=== PATIENT | female | born 1950 | race Caucasian/White ===

== ENCOUNTER 2019-09-22 17:20 | Inpatient (IN) | payer MEDICARE, OTHER ==
[2019-09-22] MEDS ORDERED: NORMAL SALINE 1000 ML 1,000 ML IV ONE (18:06)
[2019-09-22 18:07] LABS: HEMATOCRIT 41.9 % (36.0-47.0); HEMOGLOBIN 14.5 g/dL (12.0-15.5); MEAN CORPUSCULAR HEMOGLOBIN 29.8 pg (27.0-33.4); MEAN CORPUSCULAR HGB CONC 34.6 g/dL (32.0-36.0); MEAN CORPUSCULAR VOLUME 86 fl (80-97); PLATELET COUNT 181 10^3/uL (150-450); RED BLOOD COUNT 4.88 10^6/uL (3.72-5.28); RED CELL DISTRIBUTION WIDTH 12.9 % (11.5-14.0); WHITE BLOOD COUNT 16.4 10^3/uL (4.0-10.5)
--- NOTE | 2019-09-22 18:38 | RADIOLOGY REPORT (SQ) ---
EXAM DESCRIPTION: CHEST SINGLE VIEW IMAGES COMPLETED DATE/TIME: 09/22/2019 6:21 pm REASON FOR STUDY: [employer] COMPARISON: None. EXAM PARAMETERS: NUMBER OF VIEWS: One view. TECHNIQUE: Single frontal radiographic view of the chest acquired. RADIATION DOSE: NA LIMITATIONS: None. FINDINGS: LUNGS AND PLEURA: No opacities, masses or pneumothorax. No pleural effusion. MEDIASTINUM AND HILAR STRUCTURES: No masses. Contour normal. HEART AND VASCULAR STRUCTURES: Heart size is borderline. No pulmonary edema. BONES: No acute findings. HARDWARE: None in the chest. OTHER: No other significant finding. IMPRESSION: Borderline heart size without pulmonary edema. TECHNICAL DOCUMENTATION: JOB ID: [id number] 2010 [employer]- All Rights Reserved Reading location - IP/workstation name: [email or web address]
[2019-09-22 18:45] LABS: ABSOLUTE LYMPHOCYTES# (MANUAL) 0.7 10^3/uL (0.5-4.7); BASOPHILS % (MANUAL) 0 % (0-2); EOSINOPHILS % (MANUAL) 0 % (0-6); LYMPHOCYTES % (MANUAL) 3 % (13-45); MONOCYTES % (MANUAL) 6 % (3-13); PLATELET COMMENT ADEQUATE; SEGMENTED NEUTROPHILS % (MAN) 90 % (42-78); TOTAL CELLS COUNTED 100
[2019-09-22 18:46] LABS: ALBUMIN 4.2 g/dL (3.5-5.0); ALKALINE PHOSPHATASE 72 U/L (38-126); ANION GAP 7 (5-19); ASPARTATE AMINO TRANSFERASE 18 U/L (14-36); BILIRUBIN,TOTAL 0.6 mg/dL (0.2-1.3); BLOOD UREA NITROGEN 16 mg/dL (7-20); CALCIUM 9.1 mg/dL (8.4-10.2); CARBON DIOXIDE 25 mmol/L (22-30); CHLORIDE 106 mmol/L (98-107); GLUCOSE 142 mg/dL (75-110); POTASSIUM 3.6 mmol/L (3.6-5.0); TOTAL PROTEIN 7.2 g/dL (6.3-8.2)
[2019-09-22 18:48] LABS: OVALOCYTES SLIGHT
[2019-09-22 19:57] LABS: APPEARANCE,URINE SLIGHTLY-CLOUDY; BILIRUBIN,URINE NEGATIVE (NEGATIVE); COLOR,URINE STRAW; GLUCOSE, URINE NEGATIVE (NEGATIVE); KETONES,URINE NEGATIVE (NEGATIVE); PROTEIN,URINE NEGATIVE (NEGATIVE); URINE SPECIFIC GRAVITY 1.004; UROBILINOGEN,URINE NEGATIVE mg/dL (<2.0)
--- NOTE | 2019-09-22 21:20 | EKG REPORT ---
SEVERITY:- BORDERLINE ECG - SINUS RHYTHM LEFT AXIS DEVIATION BORDERLINE T WAVE ABNORMALITIES : Confirmed by: Filiberto Cerna MD 22-Sep-2019 21:19:23
--- NOTE | 2019-09-22 22:22 | RADIOLOGY REPORT (SQ) ---
EXAM DESCRIPTION: CT ABDOMEN PELVIS WITH IV CONTRAST COMPLETED DATE/TME: 09/22/2019 18:05 CLINICAL HISTORY: 69 years, Female, rectal bleeding with LLQ pain EXAM DESCRIPTION: CLINICAL HISTORY: rectal bleeding with LLQ pain COMPARISON: None Available TECHNIQUE: Contiguous axial images of the abdomen and pelvis were obtained after the administration of intravenous contrast followed by reconstruction images.This exam was performed according to our departmental dose-optimization program, which includes automated exposure control, adjustment of the mA and/or kV according to patient size and/or use of iterative reconstruction technique. FINDINGS: There is colonic diverticulosis. The wall of the colon from the splenic flexure to the sigmoid is moderately thickened and there is surrounding soft tissue stranding. Mild thickening of the colonic wall is also seen at the ascending and transverse portions. Findings are most consistent with inflammation but ischemia or neoplasm are not excluded. There is a small hiatal hernia. Heart is mildly enlarged. The liver, spleen, pancreas and kidneys are within normal limits. There is no hydronephrosis. The gallbladder is unremarkable. Adrenal glands are within normal limits. Aorta is normal in caliber and tapering. No significant free fluid. No free air. No bowel obstruction. IMPRESSION: Findings are most consistent with inflammation of the colon. Neoplasm or ischemia are less likely. See additional findings above.
[2019-09-22] MEDS ORDERED: PIPERACILLIN/TAZOBACTAM 3.375 GM VIAL IV ONE (23:36)
[2019-09-22] MEDS ORDERED: PROMETHAZINE HCL INJ 25 MG/1 ML VIAL IV PRN (23:42)
[2019-09-22] MEDS ORDERED: MAG HYDROX/AL HYDROX/SIMETH SUSP 30 ML UDCUP PO PRN (23:42)
[2019-09-22] MEDS ORDERED: FAMOTIDINE 20 MG TABLET PO SCH (23:45)
--- NOTE | 2019-09-22 23:45 | ER Document Report ---
ED GI Bleed / Rectal Pain - General Chief Complaint: Rectal Bleeding Stated Complaint: BLOODY STOOLS/VOMITING Time Seen by Provider: 09/22/19 17:51 Primary Care Provider: CONOR MIRANDA MD [Primary Care Provider] - Follow up as needed Information source: Patient, Emergency Med Personnel Notes: Patient is a 69-year-old female who was brought in by EMS with a complaint of a rectal bleed. Patient states that earlier in the day today she had a fullness in her abdomen and felt like she had to have a bowel movement. Patient states that she went into the bathroom and she did not have any stool but she had watery diarrhea. It was not a very large amount at that time and patient still concerned did not feel necessary to come to the hospital. Later in this evening patient had another feeling as such and went to the restroom and at this time she had a volume is outflow of watery diarrhea. This bloody diarrhea was very red in its appearance. Patient decided it was time for her to come to the hospital. Patient denies any past medical history. She currently takes no medications. She denies any nausea vomiting or fevers. Patient does state that she had a colonoscopy performed approximately a year ago here at the hospital and states it was negative for any acute findings with the exception of 4 polyps. TRAVEL OUTSIDE OF THE [place] IN LAST 30 DAYS: No - HPI Patient complains to provider of: Bright red bld from rect. Onset: This evening Timing/Duration: Sudden Quality of pain: No pain Severity of symptoms: Moderate Pain Level: 3 Diarrhea X: 2 Last bowel movement: Prior to arriva Rectal bleeding: Bloody diarrhea Rectal foreign body: No Rectal pain with intercourse: No Use of: denies: Warfarin, Plavix, ASA, Lovenox, Pradaxa, NSAIDS, ETOH Associated symptoms: Abdominal pain Exacerbated by: Denies Relieved by: Denies Similar symptoms previously: No Recently seen / treated by doctor: No - Related Data Allergies/Adverse Reactions: Sulfa (Sulfonamide Antibiotics) Allergy (Verified 09/22/19 18:02) Past Medical History - General Information source: Patient, Emergency Med Personnel - Social History Smoking Status: Current Every Day Smoker Chew tobacco use (# tins/day): No Frequency of alcohol use: Occasional Drug Abuse: None Lives with: Family Family History: Reviewed & Not Pertinent Patient has homicidal ideation: No - Past Medical History Cardiac Medical History: Denies: Hx Coronary Artery Disease, Hx Heart Attack, Hx Hypertension Pulmonary Medical History: Denies: Hx Asthma, Hx Bronchitis, Hx COPD, Hx Pneumonia Neurological Medical History: Denies: Hx Cerebrovascular Accident, Hx Seizures GI Medical History: Reports: Hx Gastroesophageal Reflux Disease Musculoskeletal Medical History: Denies Hx Arthritis Past Surgical History: Reports: Hx Hysterectomy - Immunizations Hx Diphtheria, Pertussis, Tetanus Vaccination: Yes Review of Systems - Review of Systems Constitutional: No symptoms reported EENT: No symptoms reported Cardiovascular: No symptoms reported Respiratory: No symptoms reported Gastrointestinal: Diarrhea, Rectal bleeding Genitourinary: No symptoms reported Female Genitourinary: No symptoms reported Musculoskeletal: No symptoms reported Skin: No symptoms reported Hematologic/Lymphatic: No symptoms reported Neurological/Psychological: No symptoms reported -: Yes All other systems reviewed and negative Physical Exam - Vital signs Vitals: Resp BP Pulse Ox 8 L 141/90 H 97 09/22/19 17:32 09/22/19 17:32 09/22/19 17:32 Interpretation: Hypertensive - Notes Notes: PHYSICAL EXAMINATION: GENERAL: Patient is a well-nourished well-developed 69-year-old female who is in no apparent distress on examination this evening. She does appear somewhat concerned and slightly scared because of the rectal bleeding. HEAD: Atraumatic, normocephalic. EYES: Pupils equal round and reactive to light, extraocular movements intact, conjunctiva are normal. ENT: Nares patent, oropharynx clear without exudates. Moist mucous membranes. NECK: Normal range of motion, supple without lymphadenopathy LUNGS: Breath sounds clear to auscultation bilaterally and equal. No wheezes rales or rhonchi. HEART: Regular rate and rhythm without murmurs ABDOMEN: Examination patient's abdomen shows she has bowel sounds present in all 4 quads. She has some mild tenderness noted in the left lower quadrant area to palpation. No flank tenderness to percussion noted. No suprapubic tenderness noted. Female : deferred Musculoskeletal: Normal range of motion, no pitting or edema. No cyanosis. NEUROLOGICAL: Normal speech, Normal sensory, motor exams PSYCH: Normal mood, flat affect noted SKIN: Warm, Dry, normal turgor, no rashes or lesions noted. Course - Re-evaluation Re-evalutation: 09/22/19 23:45 Patient stated emergency room is been fairly quiet however her labs came back with a 16 for white count her hemoglobin hematocrit were normal on initial examination of 14.[address] showed possibility of stranding and thickening of the wen of the colon. I discussed the case with my attending Dr. Lee and he has suggested that we contact the surgicalist Dr. Jamison to inform him of our plan of admission to the hospitalist for a rectal bleed and most likely consult by the hospitalist for him. He is in agreement to be consulted by the hospitalist if they feel necessary to need them. I then co ntacted the hospitalist who is agreed also to admit the patient for a diverticulitis type presentation. He has requested that I give patient 3.75 mg of Zosyn here in the emergency room. I have also informed him the patient's vital signs are remaining normal at this time she is not tachycardic she is not hypotensive she is not de-satting. - Vital Signs Vital signs: Temp Pulse Resp BP Pulse Ox 99.4 F 18 149/71 H 93 09/22/19 17:35 09/22/19 20:01 09/22/19 20:01 09/22/19 17:33 - Laboratory Result Diagrams: 09/22/19 17:43 09/22/19 17:43 Laboratory results interpreted by me: 09/22/19 09/22/19 09/22/19 17:43 17:43 19:22 WBC 16.4 H Seg Neuts % (Manual) 90 H Lymphocytes % (Manual) 3 L Abs Neuts (Manual) 14.8 H Glucose 142 H Urine Blood MODERATE H Leukocyte Esterase Rfl SMALL H Discharge - Discharge Clinical Impression: Diverticulitis, Rectal bleed Condition: Stable Disposition: ADMITTED INPATIENT Admitting Provider: Oc (Hospitalist) Unit Admitted: Medical Floor Referrals: CONOR MIRANDA MD [Primary Care Provider] - Follow up as needed
[2019-09-22] MEDS ORDERED: MORPHINE SULFATE 10 MG/ML INJ IV PRN (23:48)
[2019-09-22] MEDS ORDERED: MELATONIN 5 MG TABLET PO PRN (23:48)
[2019-09-22] MEDS ORDERED: HYDRALAZINE HCL INJ/PF 20 MG/1 ML SDV IV PRN (23:48)
[2019-09-22] MEDS ORDERED: LORAZEPAM INJ 2 MG/1 ML VIAL IV PRN (23:48)
[2019-09-23] MEDS ORDERED: NICOTINE 21 MG/24 HR PATCH.TD24 TD PRN (00:13)
[2019-09-23] MEDS ORDERED: MORPHINE SULFATE 10 MG/ML INJ IV PRN ×4 (00:28→01:00)
[2019-09-23] MEDS ORDERED: PIPERACILLIN/TAZOBACTAM 3.375 GM VIAL IV PRN (00:30)
[2019-09-23] MEDS ORDERED: FAMOTIDINE 20 MG TABLET PO ONE (00:30)
--- NOTE | 2019-09-23 01:34 | PDOC CONSULTATION ---
Consultation Consult Date: 09/23/19 Attending physician:: SAUL PATHAK Provider Consulted: PEG DARBY Consult reason:: BLOODY DIARRHEA, ABD PAIN History of Present Illness Admission Date/PCP: 09/23/19 00:00 CONOR MIRANDA MD History of Present Illness: JAIME RUBIN is a 69 year old female who was brought in by EMS with a complaint of a rectal bleed. Patient states that earlier in the day today she had a fullness in her abdomen and felt like she had to have a bowel movement. Patient states that she went into the bathroom and she did not have any stool but she had watery diarrhea. It was not a very large amount at that time and patient still concerned did not feel necessary to come to the hospital. Later in this evening patient had another feeling as such and went to the restroom and at this time she had a volume is outflow of watery diarrhea. This bloody diarrhea was very red in its appearance. Patient decided it was time for her to come to the hospital. Patient denies any past medical history. She currently takes no medications. She denies any nausea vomiting or fevers. Patient does state that she had a colonoscopy performed approximately a year ago here at the hospital and states it was negative for any acute findings with the exception of 4 polyps She denies any recent travel contact with anybody from out of state or foreign country. She denies any unusual foods over the last week or so however she did make her self at home some frozen tilapia about 3 to 4 days ago Past Medical History Cardiac Medical History: Denies: Coronary Artery Disease, Myocardial Infarction, Hypertension Pulmonary Medical History: Denies: Asthma, Bronchitis, Chronic Obstructive Pulmonary Disease (COPD), Pneumonia EENT Medical History: Denies: Cataracts, Ears - Hearing aids Neurological Medical History: Denies: Hemorrhagic CVA, Ischemic CVA, Seizures Endocrine Medical History: Denies: Diabetes Mellitus Type 1, Diabetes Mellitus Type 2, Hyperthyroidism, Hypothyroidism Renal/ Medical History: Denies: Chronic Kidney Disease, Nephrolithiasis Malignancy Medical History: Reports: None GI Medical History: Reports: Gastroesophageal Reflux Disease, Other - Colon polyps Denies: Cirrhosis, Crohn's Disease, Hepatitis, Peptic Ulcer Disease, Ulcerative Colitis Musculoskeltal Medical History: Denies: Arthritis, Gout Skin Medical History: Denies: Eczema, Psoriasis Psychiatric Medical History: Reports: Tobacco Dependency Denies: Alcohol Dependency, Substance Abuse Traumatic Medical History: Reports: None Hematology: Reports: Anemia Denies: Bleeding Tendencies Infectious Medical History: Reports: None Past Surgical History Past Surgical History: Reports: Hysterectomy, Other - Colonoscopy with biopsies 2018 Social History Lives with: Spouse/Significant other Smoking Status: Current Every Day Smoker Electronic Cigarette use?: No Frequency of Alcohol Use: None Hx Recreational Drug Use: No Drugs: None Hx Prescription Drug Abuse: No - Advance Directive Resuscitation Status: Full Code Family History Family History: DM. denies: CAD, Hypertension, Malignancy Parental Family History Reviewed: No Children Family History Reviewed: NA Sibling(s) Family History Reviewed.: NA Medication/Allergy Home Medications: No Home Medications 08/18/18 Allergies/Adverse Reactions: Sulfa (Sulfonamide Antibiotics) Allergy (Verified 09/22/19 18:02) Review of Systems Constitutional: PRESENT: chills, fatigue, weakness Eyes: ABSENT: as per HPI, visual disturbances, other Ears: ABSENT: as per HPI, hearing changes, other Nose, Mouth, and Throat: ABSENT: as per HPI, headache(s), mouth pain, sore throat, vertigo, other Breasts: ABSENT: as per HPI, other Cardiovascular: ABSENT: as per HPI, chest pain, dyspnea on exertion, edema, orthropnea, palpitations, other Respiratory: ABSENT: as per HPI, cough, dyspnea, hemoptysis, sputum, other Gastrointestinal: PRESENT: as per HPI, abdominal pain, bloating, hematochezia Genitourinary: ABSENT: as per HPI, difficulty urinating, dysuria, hematuria, nocturia, other Musculoskeletal: ABSENT: as per HPI, back pain, deformity, joint swelling, muscle weakness, other Integumentary: ABSENT: as per HPI, diaphoresis, erythema, lesions, pruritus, rash, wounds, other Neurological: ABSENT: as per HPI, abnormal gait, abnormal movements, abnormal speech, confusion, convulsions, dizziness, focal weakness, frequent falls, lack of coordination, memory loss, numbness, paresthesias, restless legs, syncope, tingling, tremor(s), vertigo, weakness, other Psychiatric: ABSENT: as per HPI, anxiety, depression, hallucinations, homidical ideation, suicidal ideation, other Endocrine: ABSENT: as per HPI, cold intolerance, flushing, heat intolerance, menstrual abnormalities, polydipsia, polyphagia, polyuria, other Hematologic/Lymphatic: ABSENT: as per HPI, easy bleeding, easy bruising, lym phadenopathy, other Allergic/Immunologic: ABSENT: as per HPI, seasonal rhinorrhea, other Physical Exam Vital Signs: Temp Pulse Resp BP Pulse Ox 98.3 F 21 H 158/86 H 95 09/23/19 00:47 09/22/19 23:00 09/23/19 00:45 09/23/19 00:45 Intake & Output 09/21/19 09/22/19 09/23/19 06:59 06:59 06:59 Intake Total 1000 Balance 1000 Weight 77.111 kg General appearance: PRESENT: mild distress Head exam: PRESENT: normocephalic Eye exam: PRESENT: EOMI Mouth exam: PRESENT: moist Neck exam: PRESENT: full ROM Respiratory exam: PRESENT: clear to auscultation rosa Cardiovascular exam: PRESENT: RRR Pulses: PRESENT: normal radial pulses, normal femoral pulses Vascular exam: PRESENT: normal capillary refill Breast: PRESENT: Normal GI/Abdominal exam: PRESENT: tenderness - LEFT ABDOMEN AND EPIGASTRIUM Rectal exam: PRESENT: deferred Extremities exam: PRESENT: full ROM Musculoskeletal exam: PRESENT: full ROM Neurological exam: PRESENT: alert, altered, awake, oriented to person Psychiatric exam: PRESENT: anxious Skin exam: PRESENT: dry Results Laboratory Results: 09/22/19 17:43 09/22/19 17:43 09/22/19 09/22/19 09/22/19 17:43 17:43 17:57 WBC 16.4 H RBC 4.88 Hgb 14.5 Hct 41.9 MCV 86 MCH 29.8 MCHC 34.6 RDW 12.9 Plt Count 181 Seg Neutrophils % Not Reportable Sodium 137.6 Potassium 3.6 Chloride 106 Carbon Dioxide 25 Anion Gap 7 BUN 16 Creatinine 0.74 Est GFR ( Amer) > 60 Glucose 142 H Calcium 9.1 Total Bilirubin 0.6 AST 18 Alkaline Phosphatase 72 Total Protein 7.2 Albumin 4.2 Urine Color Urine Appearance Urine pH Ur Specific Thermal Urine Protein Urine Glucose (UA) Urine Ketones Urine Blood Urine RBC (Auto) Blood Type O POSITIVE Antibody Screen NEGATIVE 09/22/19 19:22 WBC RBC Hgb Hct MCV MCH MCHC RDW Plt Count Seg Neutrophils % Sodium Potassium Chloride Carbon Dioxide Anion Gap BUN Creatinine Est GFR ( Amer) Glucose Calcium Total Bilirubin AST Alkaline Phosphatase Total Protein Albumin Urine Color STRAW Urine Appearance SLIGHTLY-CLOUDY Urine pH 7.0 Ur Specific Thermal 1.004 Urine Protein NEGATIVE Urine Glucose (UA) NEGATIVE Urine Ketones NEGATIVE Urine Blood MODERATE H Urine RBC (Auto) 2 Blood Type Antibody Screen Impressions: Abdomen/Pelvis CT 09/22/19 18:05 IMPRESSION: Findings are most consistent with inflammation of the colon. Neoplasm or ischemia are less likely. See additional findings above. Chest X-Ray 09/22/19 18:07 IMPRESSION: Borderline heart size without pulmonary edema. Status: Imported from PACS - CT REVIEWED BY ME AND RADIOLOGIST RESULTS NOTED COLON APPEARS THICKENED FROM SPLENIC FLEXURE TO SIGMOID SURROUND INFLAMMATION. Assessment & Plan - Plan Summary Plan Summary: LEFT COLONIC THICKENING, INFLAMMATION BLOODY DIARRHEA R/O INFECTIOUS ETIOL, DOUBT ISCHEMIA DOUBT BLEEING DIVERTIULOSIS RECOMMEND ADMIT FOR IV HYDRATION +/- ANTIBIOTICS OBSERVATION STOOL FOR O/P AND STOOL CULTS.
[2019-09-23] MEDS: DEXTROSE 5%-LACTATED RINGERS 1,000 ML IV PRN ×3 (02:18→15:26)
--- NOTE | 2019-09-23 02:45 | PDOC H&P ---
History of Present Illness Admission Date/PCP: 09/22/2019 23:52 CONOR MIRANDA MD Patient complains of: Hematochezia History of Present Illness: JAIME RUBIN is a 69 year old female who presents the emergency room via EMS with acute hematochezia. She admits sudden obstipation beginning at 1:30 AM on 09/22/2019 resulting in watery diarrhea tinged with blood. She then repeatedly developed the same sequence of symptoms at least 12 times over the course of the day with a much increased amount of bright red blood in the last stool at home a short time before calling for the ambulance to bring her to the hospital. She admits accompanying nausea, vomiting and abdominal cramping, as well as associated acute fatigue with weakness. She denies prior similar episodes. She has not identified any aggravating or ameliorating factors for her hematochezia. In the emergency room she was found to have an elevated white blood count at 16,400 with a hemoglobin of 14.5 and hematocrit of 41.9. CT of the abdomen and pelvis revealed several segments of the colon with thickening of the colonic wall consistent with infection, ischemia or inflammatory disease. She was subsequently admitted to the hospital for further evaluation and treatment after being given Zosyn 3.375 g IV x1 in the ER. Past Medical History Cardiac Medical History: Denies: Coronary Artery Disease, Myocardial Infarction, Hypertension Pulmonary Medical History: Denies: Asthma, Bronchitis, Chronic Obstructive Pulmonary Disease (COPD), Pneumonia EENT Medical History: Denies: Cataracts, Ears - Hearing aids Neurological Medical History: Denies: Hemorrhagic CVA, Ischemic CVA, Seizures Endocrine Medical History: Denies: Diabetes Mellitus Type 1, Diabetes Mellitus Type 2, Hyperthyroidism, Hypothyroidism Renal/ Medical History: Denies: Chronic Kidney Disease, Nephrolithiasis Malignancy Medical History: Reports: None GI Medical History: Reports: Gastroesophageal Reflux Disease, Other - Colon polyps, diverticulosis Denies: Cirrhosis, Crohn's Disease, Hepatitis, Peptic Ulcer Disease, Ulcerat baldemar Colitis Musculoskeltal Medical History: Denies: Arthritis, Gout Skin Medical History: Denies: Eczema, Psoriasis Psychiatric Medical History: Reports: Tobacco Dependency Denies: Alcohol Dependency, Substance Abuse Traumatic Medical History: Reports: None Hematology: Reports: Anemia Denies: Bleeding Tendencies Infectious Medical History: Reports: None Past Surgical History Past Surgical History: Reports: Hysterectomy, Other - Colonoscopy with biopsies 2019 Social History Information Source: Patient Lives with: Spouse/Significant other Smoking Status: Current Every Day Smoker Cigarettes Packs Per Day: 2 Electronic Cigarette use?: No Frequency of Alcohol Use: None Hx Recreational Drug Use: No Drugs: None Hx Prescription Drug Abuse: No - Advance Directive Resuscitation Status: Full Code Surrogate healthcare decision maker:: Raúl Rubin Family History Family History: DM. denies: CAD, Hypertension, Malignancy Parental Family History Reviewed: Yes Children Family History Reviewed: No Sibling(s) Family History Reviewed.: Yes Medication/Allergy Home Medications: No Home Medications 08/18/18 Allergies/Adverse Reactions: Sulfa (Sulfonamide Antibiotics) Allergy (Verified 09/22/19 18:02) Review of Systems Constitutional: PRESENT: as per HPI, fatigue, weakness. ABSENT: chills, fever(s) Eyes: ABSENT: visual disturbances, other - Eye pain Ears: ABSENT: hearing changes, other - Ear pain Nose, Mouth, and Throat: ABSENT: headache(s), sore throat Cardiovascular: ABSENT: chest pain, palpitations Respiratory: ABSENT: cough, dyspnea Gastrointestinal: PRESENT: as per HPI, abdominal pain, diarrhea, hematochezia, nausea, vomiting. ABSENT: constipation Genitourinary: ABSENT: dysuria, hematuria Integumentary: ABSENT: pruritus, rash Neurological: ABSENT: confusion, convulsions, focal weakness, memory loss, syncope Psychiatric: ABSENT: anxiety, depression Endocrine: ABSENT: cold intolerance, heat intolerance Hematologic/Lymphatic: ABSENT: easy bruising, lymphadenopathy Allergic/Immunologic: ABSENT: seasonal rhinorrhea Physical Exam Vital Signs: Temp Pulse Resp BP Pulse Ox 99.4 F 18 149/71 H 93 09/22/19 17:35 09/22/19 20:01 09/22/19 20:01 09/22/19 17:33 Intake & Output 09/20/19 09/21/19 09/22/19 23:59 23:59 23:59 Intake Total 1000 Balance 1000 Weight 77.111 kg General appearance: PRESENT: no acute distress, cooperative Head exam: PRESENT: atraumatic, normocephalic Eye exam: PRESENT: conjunctiva pink. ABSENT: conjunctival injection, scleral icterus Ear exam: PRESENT: normal external ear exam. ABSENT: bleeding, drainage Mouth exam: PRESENT: dry mucosa, neck supple Neck exam: ABSENT: thyromegaly, tracheal deviation Respiratory exam: PRESENT: clear to auscultation rosa, symmetrical, unlabored Cardiovascular exam: PRESENT: RRR. ABSENT: clicks, gallop, rubs Pulses: PRESENT: normal radial pulses, normal dorsalis pedis pul Vascular exam: PRESENT: normal capillary refill. ABSENT: pallor GI/Abdominal exam: PRESENT: normal bowel sounds, soft Rectal exam: PRESENT: deferred Extremities exam: ABSENT: joint swelling, pedal edema Musculoskeletal exam: ABSENT: deformity, dislocation Neurological exam: PRESENT: alert, oriented to person, oriented to place, oriented to time, oriented to situation, CN II-XII grossly intact. ABSENT: motor sensory deficit Psychiatric exam: PRESENT: anxious, normal mood Skin exam: PRESENT: dry, intact, warm. ABSENT: jaundice, rash, urticaria Results Laboratory Results: 09/22/19 17:43 09/22/19 17:43 09/22/19 09/22/19 09/22/19 17:43 17:43 17:57 WBC 16.4 H RBC 4.88 Hgb 14.5 Hct 41.9 MCV 86 MCH 29.8 MCHC 34.6 RDW 12.9 Plt Count 181 Seg Neutrophils % Not Reportable Sodium 137.6 Potassium 3.6 Chloride 106 Carbon Dioxide 25 Anion Gap 7 BUN 16 Creatinine 0.74 Est GFR ( Amer) > 60 Glucose 142 H Calcium 9.1 Total Bilirubin 0.6 AST 18 Alkaline Phosphatase 72 Total Protein 7.2 Albumin 4.2 Urine Color Urine Appearance Urine pH Ur Specific [place] Urine Protein Urine Glucose (UA) Urine Ketones Urine Blood Urine RBC (Auto) Blood Type O POSITIVE Antibody Screen NEGATIVE 09/22/19 19:22 WBC RBC Hgb Hct MCV MCH MCHC RDW Plt Count Seg Neutrophils % Sodium Potassium Chloride Carbon Dioxide Anion Gap BUN Creatinine Est GFR ( Amer) Glucose Calcium Total Bilirubin AST Alkaline Phosphatase Total Protein Albumin Urine Color STRAW Urine Appearance SLIGHTLY-CLOUDY Urine pH 7.0 Ur Specific [place] 1.004 Urine Protein NEGATIVE Urine Glucose (UA) NEGATIVE Urine Ketones NEGATIVE Urine Blood MODERATE H Urine RBC (Auto) 2 Blood Type Antibody Screen Impressions: Abdomen/Pelvis CT 09/22/19 18:05 IMPRESSION: Findings are most consistent with inflammation of the colon. Neoplasm or ischemia are less likely. See additional findings above. Chest X-Ray 09/22/19 18:07 IMPRESSION: Borderline heart size without pulmonary edema. Assessment and Plan - Diagnosis (1) Diverticulitis large intestine w/o perforation or abscess w/bleeding Is this a current diagnosis for this admission?: Yes (2) Leukocytosis, unspecified Qualifiers: Leukocytosis type: unspecified Qualified Code(s): D72.829 - Elevated white blood cell count, unspecified Is this a current diagnosis for this admission?: Yes (3) Nausea and vomiting Qualifiers: Vomiting type: unspecified Is this a current diagnosis for this admission?: Yes (4) Diarrhea Qualifiers: Diarrhea type: unspecified type Qualified Code(s): R19.7 - Diarrhea, unspecified Is this a current diagnosis for this admission?: Yes (5) Abdominal cramping Is this a current diagnosis for this admission?: Yes (6) Anxiety Is this a current diagnosis for this admission?: Yes (7) Tobacco use disorder, continuous Is this a current diagnosis for this admission?: Yes - Plan Summary Summary: Patient will be admitted to the medical floor where she will receive routine supportive and symptomatic cares. She will be treated with IV fluids utilizing D5 lactated Ringer's at 167 mL/h. She will be given Zosyn 3.375 g IV every 6 hours. She will use morphine sulfate 2 to 4 mg IV every 2 hours as needed for pain using a sliding scale for dosing. She will use Ativan 1 mg IV every 4 hours as needed for anxiety or restlessness. She will be started on a clear liquid diet that may be advanced as appropriate. CBCs, metabolic profiles, magnesium levels, additional radiographic and/or laboratory evaluations will be performed as appropriate. Smoking cessation is advised and counseled briefly at the bedside. A Nicotine replacement patches available for the patient's use, if desired. - Time Time Spent with patient: Less than 15 minutes Smoking Cessation Education: 3 to 10 minutes Medications reviewed and adjusted accordingly: Yes Anticipated discharge: Home - Inpatient Certification Based on my medical assessment, after consideration of the patient's comorbidities, presenting symptoms, or acuity I expect that the services needed warrant INPATIENT care.: Yes I certify that my determination is in accordance with my understanding of Medicare's requirements for reasonable and necessary INPATIENT services [42 CFR 412.3e].: Yes Medical Necessity: Need Close Monitoring Due to Risk of Patient Decompensation, Need for IV Antibiotics, Risk of Complication if Not Cared For in Hospital, Risk of Diagnosis Which Will Require Inpatient Eval/Care/Monitoring
[2019-09-23] MEDS: PIPERACILLIN SODIUM/TAZOBACTAM 3.375 GM in NORMAL SALINE 100 ML IV SCH ×3 (05:25→17:07)
[2019-09-23 06:06] LABS: HEMATOCRIT 37.9 % (36.0-47.0); HEMOGLOBIN 13.1 g/dL (12.0-15.5); MEAN CORPUSCULAR HEMOGLOBIN 29.8 pg (27.0-33.4); MEAN CORPUSCULAR HGB CONC 34.6 g/dL (32.0-36.0); MEAN CORPUSCULAR VOLUME 86 fl (80-97); PLATELET COUNT 163 10^3/uL (150-450); RED CELL DISTRIBUTION WIDTH 13.1 % (11.5-14.0); WHITE BLOOD COUNT 13.4 10^3/uL (4.0-10.5)
[2019-09-23 06:28] LABS: ANION GAP 6 (5-19); BLOOD UREA NITROGEN 12 mg/dL (7-20); CALCIUM 8.5 mg/dL (8.4-10.2); CARBON DIOXIDE 24 mmol/L (22-30); CHLORIDE 109 mmol/L (98-107); GLUCOSE 164 mg/dL (75-110); POTASSIUM 3.5 mmol/L (3.6-5.0)
[2019-09-23] MEDS: FAMOTIDINE 20 MG TABLET PO SCH ×2 (09:28→21:22)
[2019-09-23] MEDS: ACETAMINOPHEN 325 MG TABLET PO PRN (09:31)
--- NOTE | 2019-09-23 09:58 | PDOC PROGRESS REPORT ---
Subjective Progress Note for:: 09/23/19 Subjective:: Still having watery stool. Still complains of periumbilical discomfort. She has a headache this morning. Reason For Visit: ACUTE DIVERTICULITIS WITH HEMORRHAGE Physical Exam Vital Signs: Temp Pulse Resp BP Pulse Ox 98.5 F 83 12 146/75 H 95 09/23/19 02:21 09/23/19 02:21 09/23/19 02:21 09/23/19 02:21 09/23/19 02:03 Intake & Output 09/22/19 09/23/19 09/24/19 06:59 06:59 06:59 Intake Total 1100 1000 Balance 1100 1000 Weight 79.1 kg General appearance: PRESENT: cooperative, mild distress, well-developed Eye exam: PRESENT: conjunctiva pink, EOMI. ABSENT: scleral icterus Ear exam: PRESENT: normal external ear exam. ABSENT: bleeding, drainage Mouth exam: PRESENT: moist, tongue midline Respiratory exam: PRESENT: clear to auscultation rosa, symmetrical, unlabored. ABSENT: rales, rhonchi, tachypnea, wheezes Cardiovascular exam: PRESENT: RRR, +S1, +S2. ABSENT: diastolic murmur, irregular rhythm, systolic murmur GI/Abdominal exam: PRESENT: normal bowel sounds, soft, tenderness - Mid abdomen. ABSENT: distended, guarding Rectal exam: PRESENT: deferred Gentrourinary exam: ABSENT: indwelling catheter Extremities exam: ABSENT: pedal edema Musculoskeletal exam: PRESENT: ambulatory, full ROM, normal inspection. ABSENT: deformity Neurological exam: PRESENT: alert, awake, oriented to person, oriented to place, oriented to time, oriented to situation, CN II-XII grossly intact. ABSENT: altered Psychiatric exam: PRESENT: appropriate affect. ABSENT: agitated, anxious Focused psych exam: ABSENT: delusional, paranoid, restlessness Skin exam: PRESENT: dry, normal color, warm. ABSENT: rash Results Laboratory Results: 09/23/19 05:33 09/23/19 05:33 09/22/19 09/22/19 09/22/19 17:43 17:43 17:57 WBC 16.4 H RBC 4.88 Hgb 14.5 Hct 41.9 MCV 86 MCH 29.8 MCHC 34.6 RDW 12.9 Plt Count 181 Seg Neutrophils % Not Reportable Sodium 137.6 Potassium 3.6 Chloride 106 Carbon Dioxide 25 Anion Gap 7 BUN 16 Creatinine 0.74 Est GFR ( Amer) > 60 Glucose 142 H Calcium 9.1 Magnesium Total Bilirubin 0.6 AST 18 Alkaline Phosphatase 72 Total Protein 7.2 Albumin 4.2 TSH Urine Color Urine Appearance Urine pH Ur Specific [place] Urine Protein Urine Glucose (UA) Urine Ketones Urine Blood Urine RBC (Auto) Blood Type O POSITIVE Antibody Screen NEGATIVE 09/22/19 09/23/19 09/23/19 19:22 05:33 05:33 WBC 13.4 H RBC 4.40 Hgb 13.1 Hct 37.9 MCV 86 MCH 29.8 MCHC 34.6 RDW 13.1 Plt Count 163 Seg Neutrophils % Sodium 139.1 Potassium 3.5 L Chloride 109 H Carbon Dioxide 24 Anion Gap 6 BUN 12 Creatinine 0.65 Est GFR ( Amer) > 60 Glucose 164 H Calcium 8.5 Magnesium 2.0 Total Bilirubin AST Alkaline Phosphatase Total Protein Albumin TSH Urine Color STRAW Urine Appearance SLIGHTLY-CLOUDY Urine pH 7.0 Ur Specific [place] 1.004 Urine Protein NEGATIVE Urine Glucose (UA) NEGATIVE Urine Ketones NEGATIVE Urine Blood MODERATE H Urine RBC (Auto) 2 Blood Type Antibody Screen 09/23/19 05:33 WBC RBC Hgb Hct MCV MCH MCHC RDW Plt Count Seg Neutrophils % Sodium Potassium Chloride Carbon Dioxide Anion Gap BUN Creatinine Est GFR ( Amer) Glucose Calcium Magnesium Total Bilirubin AST Alkaline Phosphatase Total Protein Albumin TSH 1.89 Urine Color Urine Appearance Urine pH Ur Specific [place] Urine Protein Urine Glucose (UA) Urine Ketones Urine Blood Urine RBC (Auto) Blood Type Antibody Screen Impressions: Abdomen/Pelvis CT 09/22/19 18:05 IMPRESSION: Findings are most consistent with inflammation of the colon. Neoplasm or ischemia are less likely. See additional findings above. Chest X-Ray 09/22/19 18:07 IMPRESSION: Borderline heart size without pulmonary edema. Assessment and Plan - Diagnosis (1) Diverticulitis large intestine w/o perforation or abscess w/bleeding Is this a current diagnosis for this admission?: Yes Plan: 09/23/2019 Supportive care with IV fluids and analgesia. Electrolyte replacement for diarrhea. Continue antibiotic therapy. (2) Leukocytosis, unspecified Qualifiers: Leukocytosis type: unspecified Qualified Code(s): D72.829 - Elevated white blood cell count, unspecified Is this a current diagnosis for this admission?: Yes Plan: 09/23/2019 Secondary to colitis. Monitor white blood cell count. (3) Nausea and vomiting Qualifiers: Vomiting type: unspecified Vomiting Intractability: non-intractable Qualified Code(s): R11.2 - Nausea with vomiting, unspecified Is this a current diagnosis for this admission?: Yes Plan: 09/23/2019 Secondary to colitis. Monitor intake and output. Replenish fluids. (4) Abdominal cramping Is this a current diagnosis for this admission?: Yes Plan: 09/23/2019 As needed pain control. Will improve as colitis improves. (5) Anxiety Is this a current diagnosis for this admission?: Yes Plan: 09/23/2019 Chronic for this patient. Benzodiazepine therapy is available if needed. (6) Diarrhea Qualifiers: Diarrhea type: unspecified type Qualified Code(s): R19.7 - Diarrhea, unspecified Is this a current diagnosis for this admission?: Yes Plan: 09/23/2019 Secondary to colitis. This will improve with the antibiotic therapy and resolution of the diverticular inflammation. (7) Tobacco use disorder, continuous Is this a current diagnosis for this admission?: Yes Plan: 09/23/2019 She declined the nicotine patch. We had a discussion about the need to stop cigarettes as it affects hardening of the arteries in various locations includin g the kidneys, heart, brain and abdomen. (8) Headache Qualifiers: Headache type: unspecified Headache chronicity pattern: acute headache Intractability: not intractable Qualified Code(s): R51 - Headache Is this a current diagnosis for this admission?: Yes Plan: 09/23/2019 Likely due to the volume loss with diarrhea. Tylenol as needed. - Plan Summary Summary: Patient will be admitted to the medical floor where she will receive routine supportive and symptomatic cares. She will be treated with IV fluids utilizing D5 lactated Ringer's at 167 mL/h. She will be given Zosyn 3.375 g IV every 6 hours. She will use morphine sulfate 2 to 4 mg IV every 2 hours as needed for pain using a sliding scale for dosing. She will use Ativan 1 mg IV every 4 hours as needed for anxiety or restlessness. She will be started on a clear liquid diet that may be advanced as appropriate. CBCs, metabolic profiles, magnesium levels, additional radiographic and/or laboratory evaluations will be performed as appropriate. Smoking cessation is advised and counseled briefly at the bedside. A Nicotine replacement patches available for the patient's use, if desired. - Time Time Spent with patient: 15-24 minutes Smoking Cessation Education: 3 to 10 minutes Medications reviewed and adjusted accordingly: Yes Anticipated discharge: Home
[2019-09-23] MEDS ORDERED: DOCUSATE SODIUM 100 MG/10 ML UDC PO SCH (10:00)
[2019-09-23] MEDS ORDERED: POTASSIUM CHLORIDE 10 MEQ TABLET.ER PO SCH (18:00)
[2019-09-24] MEDS: PIPERACILLIN SODIUM/TAZOBACTAM 3.375 GM in NORMAL SALINE 100 ML IV SCH ×5 (00:09→23:08)
[2019-09-24] MEDS: DEXTROSE 5%-LACTATED RINGERS 1,000 ML IV PRN (00:10)
[2019-09-24 06:23] LABS: HEMATOCRIT 37.4 % (36.0-47.0); HEMOGLOBIN 12.9 g/dL (12.0-15.5); MEAN CORPUSCULAR HEMOGLOBIN 29.9 pg (27.0-33.4); MEAN CORPUSCULAR HGB CONC 34.4 g/dL (32.0-36.0); MEAN CORPUSCULAR VOLUME 87 fl (80-97); PLATELET COUNT 151 10^3/uL (150-450); RED BLOOD COUNT 4.31 10^6/uL (3.72-5.28); RED CELL DISTRIBUTION WIDTH 12.8 % (11.5-14.0); WHITE BLOOD COUNT 9.8 10^3/uL (4.0-10.5)
[2019-09-24 06:45] LABS: BLOOD UREA NITROGEN 6 mg/dL (7-20); CALCIUM 8.6 mg/dL (8.4-10.2); CARBON DIOXIDE 28 mmol/L (22-30); CHLORIDE 110 mmol/L (98-107); GLUCOSE 111 mg/dL (75-110); POTASSIUM 3.5 mmol/L (3.6-5.0)
[2019-09-24 06:53] LABS: ANION GAP 3 (5-19)
[2019-09-24] MEDS: FAMOTIDINE 20 MG TABLET PO SCH (10:18)
--- NOTE | 2019-09-24 11:40 | PDOC PROGRESS REPORT ---
Subjective Progress Note for:: 09/24/19 Subjective:: Having pain in the left forearm. This is the site of her IV. They had to change her IV site. She still reports blood in her stool but states it is less. She is still having some abdominal discomfort as well as nausea. Reason For Visit: ACUTE DIVERTICULITIS WITH HEMORRHAGE Physical Exam Vital Signs: Temp Pulse Resp BP Pulse Ox 98.9 F 78 17 142/72 H 91 L 09/24/19 00:10 09/24/19 00:10 09/24/19 00:10 09/24/19 00:10 09/24/19 00:10 Intake & Output 09/23/19 09/24/19 09/25/19 06:59 06:59 06:59 Intake Total 1100 4510 Balance 1100 4510 Weight 79.1 kg 79.1 kg General appearance: PRESENT: cooperative, mild distress, well-developed, well- nourished Head exam: PRESENT: atraumatic, normocephalic Eye exam: PRESENT: conjunctiva pink. ABSENT: scleral icterus Ear exam: PRESENT: normal external ear exam. ABSENT: bleeding, drainage Mouth exam: PRESENT: moist, tongue midline Respiratory exam: PRESENT: clear to auscultation rosa, symmetrical, unlabored. ABSENT: prolonged expiratory phas, rales, tachypnea, wheezes Cardiovascular exam: PRESENT: RRR, +S1, +S2. ABSENT: diastolic murmur, irregular rhythm, systolic murmur, tachycardia GI/Abdominal exam: PRESENT: normal bowel sounds, soft, tenderness - Still some diffuse tenderness limited. ABSENT: distended, guarding, rebound Rectal exam: PRESENT: deferred, other - Nurse reports there was still blood in the bedside commode Gentrourinary exam: PRESENT: other - The new IV is in the ventral aspect of the left forearm. There is faint ecchymotic discoloration at the IV site however there is a palpable cord extending proximally. This is very tender. The patient has developed thrombophlebitis from intravenous. They will discontinue this IV and place another. I told the patient that we could avoid continuous IV fluid, because of her fragile veins, if and only if she drinks at least 3 L of fluid daily. If she does not need this total I will need to resume continuous fluid. If there is a clinical change that requires fluid then clearly I will resume IV fluid. She continues on a clear liquid diet for the time being. Extremities exam: ABSENT: joint swelling, pedal edema Musculoskeletal exam: PRESENT: ambulatory, normal inspection. ABSENT: deformity, dislocation Neurological exam: PRESENT: alert, awake, oriented to person, oriented to place, oriented to time, oriented to situation, CN II-XII grossly intact. ABSENT: altered, motor sensory deficit Psychiatric exam: PRESENT: appropriate affect. ABSENT: agitated, anxious Focused psych exam: ABSENT: delusional, paranoid, restlessness Skin exam: PRESENT: dry, normal color, warm. ABSENT: rash Results Laboratory Results: 09/24/19 05:42 09/24/19 05:42 09/24/19 09/24/19 05:42 05:42 WBC 9.8 RBC 4.31 Hgb 12.9 Hct 37.4 MCV 87 MCH 29.9 MCHC 34.4 RDW 12.8 Plt Count 151 Sodium 140.9 Potassium 3.5 L Chloride 110 H Carbon Dioxide 28 Anion Gap 3 L BUN 6 L Creatinine 0.70 Est GFR ( Amer) > 60 Glucose 111 H Calcium 8.6 Impressions: Abdomen/Pelvis CT 09/22/19 18:05 IMPRESSION: Findings are most consistent with inflammation of the colon. Neoplasm or ischemia are less likely. See additional findings above. Chest X-Ray 09/22/19 18:07 IMPRESSION: Borderline heart size without pulmonary edema. Assessment and Plan - Diagnosis (1) Diverticulitis large intestine w/o perforation or abscess w/bleeding Is this a current diagnosis for this admission?: Yes Plan: 09/23/2019 Supportive care with IV fluids and analgesia. Electrolyte replacement for diarrhea. Continue antibiotic therapy. 09/24/2019 Continue antibiotic therapy. I explained to the patient that the blood should slowly disappear. Her hemoglobin has been reasonably stable and she is not losing a significant amount of blood. We will continue to monitor. I did discuss the case with Dr. Pearce. This may very well be an ischemic colitis especially with her ongoing tobacco use. He told the patient that if she continued to bleed surgery would be the definitive treatment. She states that she would not want surgery under any circumstance. We will continue conservative treatment. (2) Leukocytosis, unspecified Qualifiers: Leukocytosis type: unspecified Qualified Code(s): D72.829 - Elevated white blood cell count, unspecified Is this a current diagnosis for this admission?: Yes Plan: 09/23/2019 Secondary to colitis. Monitor white blood cell count. 09/24/2019 White blood cell count is now normal (3) Nausea and vomiting Qualifiers: Vomiting type: unspecified Vomiting Intractability: non-intractable Qualified Code(s): R11.2 - Nausea with vomiting, unspecified Is this a current diagnosis for this admission?: Yes Plan: 09/23/2019 Secondary to colitis. Monitor intake and output. Replenish fluids. 09/24/2019 Still with nausea. I did change the Pepcid to Protonix 40 mg twice daily in the hopes that this will help. (4) Abdominal cramping Is this a current diagnosis for this admission?: Yes Plan: 09/23/2019 As needed pain control. Will improve as colitis improves. 09/24/2019 Improved. Continue current regimen. (5) Anxiety Is this a current diagnosis for this admission?: Yes Plan: 09/23/2019 Chronic for this patient. Benzodiazepine therapy is available if needed. 09/24/2019 As above (6) Diarrhea Qualifiers: Diarrhea type: unspecified type Qualified Code(s): R19.7 - Diarrhea, unspecified Is this a current diagnosis for this admission?: Yes Plan: 09/23/2019 Secondary to colitis. This will improve with the antibiotic therapy and resolution of the diverticular inflammation. 09/24/2019 Less diarrhea but still blood as noted above. (7) Tobacco use disorder, continuous Is this a current diagnosis for this admission?: Yes Plan: 09/23/2019 She declined the nicotine patch. We had a discussion about the need to stop cigarettes as it affects hardening of the arteries in various locations including the kidneys, heart, brain and abdomen. 09/24/2019 Surgery did discuss the importance of tobacco cessation especially in light of the fact that this episode may very well be atherosclerotic disease. (8) Headache Qualifiers: Headache type: unspecified Headache chronicity pattern: acute headache Intractability: not intractable Qualified Code(s): R51 - Headache Is this a current diagnosis for this admission?: Yes Plan: 09/23/2019 Likely due to the volume loss with diarrhea. Tylenol as needed. 09/24/2019 Resolved. Analgesia is available. (9) Hematochezia Is this a current diagnosis for this admission?: Yes Plan: 09/24/2019 Still passing bright red blood but she reports that the volume is less. We will continue to monitor. Hemoglobin is still trickling down but not pathologically low. (10) Thrombophlebitis Is this a current diagnosis for this admission?: Yes Plan: 09/24/2019 Left forearm as noted above. Will order warm compresses. She does have as needed pain medication. - Plan Summary Summary: Patient will be admitted to the medical floor where she will receive routine supportive and symptomatic cares. She will be treated with IV fluids utilizing D5 lactated Ringer's at 167 mL/h. She will be given Zosyn 3.375 g IV every 6 hours. She will use morphine sulfate 2 to 4 mg IV every 2 hours as needed for pain using a sliding scale for dosing. She will use Ativan 1 mg IV every 4 hours as needed for anxiety or restlessness. She will be started on a clear liquid diet that may be advanced as appropriate. CBCs, metabolic profiles, magnesium levels, additional radiographic and/or laboratory evaluations will be performed as appropriate. Smoking cessation is advised and counseled briefly at the bedside. A Nicotine replacement patches available for the patient's use, if desired. - Time Time Spent with patient: 15-24 minutes Medications reviewed and adjusted accordingly: Yes Anticipated discharge: Home
--- NOTE | 2019-09-24 12:17 | PDOC PROGRESS REPORT ---
Subjective Progress Note for:: 09/24/19 Subjective:: 69-year-old female, smoker who presented with abdominal pain, bloody diarrhea, and colonic wall thickening of the descending colon (seen on CT scan). Today she reports that her pain is improving. She denies fevers or chills. She denies orthostasis, hematemesis, dizziness, blurry vision, chest pain, shortness of breath. Reason For Visit: ACUTE DIVERTICULITIS WITH HEMORRHAGE Physical Exam Vital Signs: Temp Pulse Resp BP Pulse Ox 98.9 F 78 17 142/72 H 91 L 09/24/19 00:10 09/24/19 00:10 09/24/19 00:10 09/24/19 00:10 09/24/19 00:10 Intake & Output 09/23/19 09/24/19 09/25/19 06:59 06:59 06:59 Intake Total 1100 4510 1260 Balance 1100 4510 1260 Weight 79.1 kg 79.1 kg General appearance: PRESENT: no acute distress, cooperative Head exam: PRESENT: atraumatic, normocephalic Eye exam: PRESENT: EOMI, PERRLA. ABSENT: scleral icterus Mouth exam: PRESENT: moist, neck supple Neck exam: ABSENT: meningismus, tenderness, thyromegaly, tracheal deviation Respiratory exam: PRESENT: unlabored. ABSENT: tachypnea, wheezes Cardiovascular exam: ABSENT: tachycardia Pulses: PRESENT: normal radial pulses Vascular exam: ABSENT: pallor GI/Abdominal exam: PRESENT: soft, tenderness - Mild left lower quadrant tenderness. ABSENT: distended, firm, guarding, rebound, rigid Rectal exam: PRESENT: deferred Extremities exam: ABSENT: clubbing Musculoskeletal exam: ABSENT: deformity Neurological exam: PRESENT: alert, awake, oriented to person, oriented to place, oriented to time, oriented to situation, CN II-XII grossly intact. ABSENT: motor sensory deficit Psychiatric exam: PRESENT: anxious. ABSENT: agitated, depressed Focused psych exam: ABSENT: delusional Skin exam: ABSENT: cyanosis, erythema, jaundice Results Laboratory Results: 09/24/19 05:42 09/24/19 05:42 09/24/19 09/24/19 05:42 05:42 WBC 9.8 RBC 4.31 Hgb 12.9 Hct 37.4 MCV 87 MCH 29.9 MCHC 34.4 RDW 12.8 Plt Count 151 Sodium 140.9 Potassium 3.5 L Chloride 110 H Carbon Dioxide 28 Anion Gap 3 L BUN 6 L Creatinine 0.70 Est GFR ( Amer) > 60 Glucose 111 H Calcium 8.6 Impressions: Abdomen/Pelvis CT 09/22/19 18:05 IMPRESSION: Findings are most consistent with inflammation of the colon. Neoplasm or ischemia are less likely. See additional findings above. Chest X-Ray 09/22/19 18:07 IMPRESSION: Borderline heart size without pulmonary edema. Assessment & Plan - Diagnosis (1) Colitis Is this a current diagnosis for this admission?: Yes - Plan Summary Plan Summary: This is a 69-year-old female with left-sided colitis (infectious versus ischemic). The patient continues to have bloody diarrhea, however her pain and leukocytosis are improving. I discussed with her possibilities including and up to surgery if her condition worsens. The patient has relayed that she does not want surgery even if that decision would result in . In light of this fact (and because her symptoms appear to be improving instead of worsening), surgery will sign off. Please renotify if we can provide any other assistance.
[2019-09-24] MEDS: PANTOPRAZOLE SODIUM 40 MG TABLET.DR PO SCH (17:34)
[2019-09-24] MEDS ORDERED: POTASSIUM CHLORIDE 10 MEQ TABLET.ER PO SCH (18:00)
[2019-09-24] MEDS: ACETAMINOPHEN 325 MG TABLET PO PRN (20:01)
[2019-09-25] MEDS: PIPERACILLIN SODIUM/TAZOBACTAM 3.375 GM in NORMAL SALINE 100 ML IV SCH (05:07)
[2019-09-25] MEDS: PANTOPRAZOLE SODIUM 40 MG TABLET.DR PO SCH (05:07)
[2019-09-25 05:18] LABS: HEMATOCRIT 38.3 % (36.0-47.0); HEMOGLOBIN 13.2 g/dL (12.0-15.5); MEAN CORPUSCULAR HEMOGLOBIN 29.6 pg (27.0-33.4); MEAN CORPUSCULAR HGB CONC 34.4 g/dL (32.0-36.0); MEAN CORPUSCULAR VOLUME 86 fl (80-97); PLATELET COUNT 177 10^3/uL (150-450); RED BLOOD COUNT 4.45 10^6/uL (3.72-5.28); RED CELL DISTRIBUTION WIDTH 12.7 % (11.5-14.0); WHITE BLOOD COUNT 9.7 10^3/uL (4.0-10.5)
[2019-09-25 05:52] LABS: BLOOD UREA NITROGEN 7 mg/dL (7-20); CALCIUM 8.8 mg/dL (8.4-10.2); CARBON DIOXIDE 25 mmol/L (22-30); CHLORIDE 111 mmol/L (98-107); GLUCOSE 100 mg/dL (75-110); POTASSIUM 3.4 mmol/L (3.6-5.0)
[2019-09-25 05:59] LABS: ANION GAP 5 (5-19)
[2019-09-25] MEDS ORDERED: POTASSIUM CHLORIDE 10 MEQ TABLET.ER PO SCH (10:00)
--- NOTE | 2019-09-25 11:48 | PDOC DISCHARGE SUMMARY ---
Impression - Admit/DC Date/PCP Admission Date/Primary Care Provider: 09/23/19 00:00 CONOR MIRANDA MD Discharge Date: 09/25/19 - Discharge Diagnosis (1) Diverticulitis large intestine w/o perforation or abscess w/bleeding Is this a current diagnosis for this admission?: Yes (2) Leukocytosis, unspecified Is this a current diagnosis for this admission?: Yes (3) Nausea and vomiting Is this a current diagnosis for this admission?: Yes (4) Abdominal cramping Is this a current diagnosis for this admission?: Yes (5) Anxiety Is this a current diagnosis for this admission?: Yes (6) Diarrhea Is this a current diagnosis for this admission?: Yes (7) Tobacco use disorder, continuous Is this a current diagnosis for this admission?: Yes (8) Headache Is this a current diagnosis for this admission?: Yes (9) Hematochezia Is this a current diagnosis for this admission?: Yes (10) Thrombophlebitis Is this a current diagnosis for this admission?: Yes (11) Hypokalemia Is this a current diagnosis for this admission?: Yes - Assessment Summary: Patient will be admitted to the medical floor where she will receive routine supportive and symptomatic cares. She will be treated with IV fluids utilizing D5 lactated Ringer's at 167 mL/h. She will be given Zosyn 3.375 g IV every 6 hours. She will use morphine sulfate 2 to 4 mg IV every 2 hours as needed for pain using a sliding scale for dosing. She will use Ativan 1 mg IV every 4 hours as needed for anxiety or restlessness. She will be started on a clear liquid diet that may be advanced as appropriate. CBCs, metabolic profiles, magnesium levels, additional radiographic and/or laboratory evaluations will be performed as appropriate. Smoking cessation is advised and counseled briefly at the bedside. A Nicotine replacement patches available for the patient's use, if desired. - Additional Information Resuscitation Status: Full Code Discharge Diet: Cardiac Discharge Activity: Activity As Tolerated Referrals: CONOR MIRANDA MD [Primary Care Provider] - 10/05/19 2:45 pm (The office will be calling you to verify your appointment.) Prescriptions: Ciprofloxacin HCl 250 mg PO BID #8 tablet Metronidazole [Flagyl 500 mg Tablet] 500 mg PO TID #12 tablet Home Medications: Ascorbate Calcium [Vitamin C] 500 mg PO DAILY PRN 09/23/19 Cholecalciferol (Vitamin D3) [Vitamin D3 1000 Unit Tablet] 1,000 unit PO DAILY 09/23/19 Vitamin E Mixed [Vitamin E] 400 unit PO DAILY 09/23/19 Acetaminophen [Tylenol 325 mg Tablet] 650 mg PO Q4HP PRN tablet 09/25/19 Ciprofloxacin HCl 250 mg PO BID #8 tablet 09/25/19 Metronidazole [Flagyl 500 mg Tablet] 500 mg PO TID #12 tablet 09/25/19 Pantoprazole Sodium [Protonix [address] Tablet] 40 mg PO BID@0600,1700 tablet.dr 09/25/19 History of Present Illiness History of Present Illness: JAIME RUBIN is a 69 year old female who presents the emergency room via EMS with acute hematochezia. She admits sudden obstipation beginning at 1:30 AM on 09/22/2019 resulting in watery diarrhea tinged with blood. She then repeatedly developed the same sequence of symptoms at least 12 times over the course of the day with a much increased amount of bright red blood in the last stool at home a short time before calling for the ambulance to bring her to the hospital. She admits accompanying nausea, vomiting and abdominal cramping, as well as associated acute fatigue with weakness. She denies prior similar episodes. She has not identified any aggravating or ameliorating factors for her hematochezia. In the emergency room she was found to have an elevated white blood count at 16,400 with a hemoglobin of 14.5 and hematocrit of 41.9. CT of the abdomen and pelvis revealed several segments of the colon with thickening of the colonic wall consistent with infection, ischemia or inflammatory disease. She was subsequently admitted to the hospital for further evaluation and treatment after being given Zosyn 3.375 g IV x1 in the ER. Hospital Course Hospital Course: The patient had a fairly unremarkable hospital course. The dissipated. She received IV fluids. As the colitis was possibly ischemic or infectious she did receive antibiotic therapy. When surgery saw the patient it was explained that if the bleeding did not stop they would need to do surgery. The patient said under no circumstances did she want surgery. She was then made aware of the correlation with smoking and atherosclerosis systemically. Yesterday her IV infiltrated in her left forearm. She developed thrombophlebitis. Discontinue the ID and told her that she must drink at least 3 L of fluid daily or I would resume IV fluids. Today she reports that she has been drinking fluids. She has no abdominal pain. She has not noticed any blood in the stool today. She is in agreement with discharge to home. She needs to establish with a primary care provider. Physical Exam Vital Signs: Temp Pulse Resp BP Pulse Ox 98.3 F 70 16 134/75 H 97 09/25/19 07:31 09/25/19 07:31 09/25/19 07:31 09/25/19 07:31 09/25/19 07:31 Intake & Output 09/24/19 09/25/19 09/26/19 06:59 06:59 06:59 Intake Total 4510 3530 Balance 4510 3530 Weight 79.1 kg 79.1 kg General appearance: PRESENT: no acute distress, cooperative, well-developed Respiratory exam: PRESENT: clear to auscultation rosa, symmetrical, unlabored. ABSENT: rales, rhonchi, tachypnea, wheezes Cardiovascular exam: PRESENT: RRR, +S1, +S2 GI/Abdominal exam: PRESENT: normal bowel sounds, soft. ABSENT: distended, guarding, tenderness Rectal exam: PRESENT: deferred Gentrourinary exam: ABSENT: indwelling catheter Results Laboratory Results: WBC 9.7 10^3/uL (4.0-10.5) 09/25/19 04:44 RBC 4.45 10^6/uL (3.72-5.28) 09/25/19 04:44 Hgb 13.2 g/dL (12.0-15.5) 09/25/19 04:44 Hct 38.3 % (36.0-47.0) 09/25/19 04:44 MCV 86 fl (80-97) 09/25/19 04:44 MCH 29.6 pg (27.0-33.4) 09/25/19 04:44 MCHC 34.4 g/dL (32.0-36.0) 09/25/19 04:44 RDW 12.7 % (11.5-14.0) 09/25/19 04:44 Plt Count 177 10^3/uL (150-450) 09/25/19 04:44 Lymph % (Auto) Not Reportable 09/22/19 17:43 [place] % (Auto) Not Reportable 09/22/19 17:43 Eos % (Auto) Not Reportable 09/22/19 17:43 Baso % (Auto) Not Reportable 09/22/19 17:43 Absolute Neuts (auto) Not Reportable 09/22/19 17:43 Absolute Lymphs (auto) Not Reportable 09/22/19 17:43 Absolute Monos (auto) Not Reportable 09/22/19 17:43 Absolute Eos (auto) Not Reportable 09/22/19 17:43 Absolute Basos (auto) Not Reportable 09/22/19 17:43 Total Counted 100 09/22/19 17:43 Seg Neutrophils % Not Reportable 09/22/19 17:43 Seg Neuts % (Manual) 90 % (42-78) H 09/22/19 17:43 Lymphocytes % (Manual) 3 % (13-45) L 09/22/19 17:43 Atypical Lymphs % 1 % (0) 09/22/19 17:43 Monocytes % (Manual) 6 % (3-13) 09/22/19 17:43 Eosinophils % (Manual) 0 % (0-6) 09/22/19 17:43 Basophils % (Manual) 0 % (0-2) 09/22/19 17:43 Abs Neuts (Manual) 14.8 10^3/uL (1.7-8.2) H 09/22/19 17:43 Abs Lymphs (Manual) 0.7 10^3/uL (0.5-4.7) 09/22/19 17:43 Abs Monocytes (Manual) 1.0 10^3/uL (0.1-1.4) 09/22/19 17:43 Absolute Eos (Manual) 0.0 10^3/uL (0.0-0.6) 09/22/19 17:43 Abs Basophils (Manual) 0.0 10^3/uL (0.0-0.2) 09/22/19 17:43 Platelet Comment ADEQUATE 09/22/19 17:43 Ovalocytes SLIGHT 09/22/19 17:43 Sodium 139.9 mmol/L (137-145) 09/25/19 04:44 Potassium 3.4 mmol/L (3.6-5.0) L 09/25/19 04:44 Chloride 111 mmol/L (98-107) H 09/25/19 04:44 Carbon Dioxide 25 mmol/L (22-30) 09/25/19 04:44 Anion Gap 5 (5-19) 09/25/19 04:44 BUN 7 mg/dL (7-20) 09/25/19 04:44 Creatinine 0.78 mg/dL (0.52-1.25) 09/25/19 04:44 Est GFR ( Amer) > 60 (>60) 09/25/19 04:44 Est GFR (MDRD) Non-Af > 60 (>60) 09/25/19 04:44 Glucose 100 mg/dL (75-110) 09/25/19 04:44 Calcium 8.8 mg/dL (8.4-10.2) 09/25/19 04:44 Magnesium 2.0 mg/dL (1.6-2.3) 09/25/19 04:44 Total Bilirubin 0.6 mg/dL (0.2-1.3) 09/22/19 17:43 Direct Bilirubin 0.0 mg/dL (0.0-0.4) 09/22/19 17:43 Neonat Total Bilirubin Not Reportable 09/22/19 17:43 Neonat Direct Bilirubin Not Reportable 09/22/19 17:43 Neonat Indirect Bili Not Reportable 09/22/19 17:43 AST 18 U/L (14-36) 09/22/19 17:43 ALT 13 U/L (<35) 09/22/19 17:43 Alkaline Phosphatase 72 U/L (38-126) 09/22/19 17:43 Total Protein 7.2 g/dL (6.3-8.2) 09/22/19 17:43 Albumin 4.2 g/dL (3.5-5.0) 09/22/19 17:43 TSH 1.89 uIU/mL (0.47-4.68) 09/23/19 05:33 Urine Color STRAW 09/22/19 19:22 Urine Appearance SLIGHTLY-CLOUDY 09/22/19 19:22 Urine pH 7.0 (5.0-9.0) 09/22/19 19:22 Ur Specific [place] 1.004 09/22/19 19:22 Urine Protein NEGATIVE mg/dL (NEGATIVE) 09/22/19 19:22 Urine Glucose (UA) NEGATIVE mg/dL (NEGATIVE) 09/22/19 19:22 Urine Ketones NEGATIVE mg/dL (NEGATIVE) 09/22/19 19:22 Urine Blood MODERATE (NEGATIVE) H 09/22/19 19:22 Urine Nitrite (Reflex) NEGATIVE (NEGATIVE) 09/22/19 19:22 Urine Bilirubin NEGATIVE (NEGATIVE) 09/22/19 19:22 Urine Urobilinogen NEGATIVE mg/dL (<2.0) 09/22/19 19:22 Leukocyte Esterase Rfl SMALL (NEGATIVE) H 09/22/19 19:22 Urine RBC (Auto) 2 /HPF 09/22/19 19:22 Urine Bacteria (Auto) TRACE /HPF 09/22/19 19:22 Urine WBC (Reflex) 8 /HPF 09/22/19 19:22 Squamous Epi Cells Auto 7 /HPF 09/22/19 19:22 Urine Mucus (Auto) RARE /LPF 09/22/19 19:22 Urine Ascorbic Acid NEGATIVE (NEGATIVE) 09/22/19 19:22 POC Stool Occult Blood POSITIVE (NEGATIVE) 09/22/19 18:01 Blood Type O POSITIVE 09/22/19 17:57 Antibody Screen NEGATIVE 09/22/19 17:57 Impressions: Abdomen/Pelvis CT 09/22/19 18:05 IMPRESSION: Findings are most consistent with inflammation of the colon. Neoplasm or ischemia are less likely. See additional findings above. Chest X-Ray 09/22/19 18:07 IMPRESSION: Borderline heart size without pulmonary edema. Plan Health Concerns: Ongoing tobacco use-I strongly encouraged the patient to stop smoking. I told her that not only with these types of surgery occurred but she is also at higher risk for stroke and heart attack as well as for arterial disease and kidney failure. She typically follows a Mediterranean diet with lots of fresh vegetables. Plan of Treatment: She will advance her diet slowly. We discussed the seeds and skins of the vegetables that she typically concerns. I told her to gradually build up her diet soft soups and foods and within a week or so she should be on regular diet. I told her wait several days and then start aspirin therapy daily. As noted above she typically follows a healthy diet but she must stop smoking and start exercising. Goals: Stop smoking, increase exercise Time Spent: Greater than 30 Minutes Stroke Is this a Stroke Patient?: No Acute Heart Failure - Is this a Heart Failure Patient?: No
[2019-09-25 12:07] VITALS: BP 150/86
== END 2019-09-25 13:05 | disposition home or self-care (01) | DRG 379 ==
LOC: ER 17:20 → EH 09-23 → 4W 09-23 01:56
PROVIDERS: ADMIT Emergency Medicine; ATTEND Hospitalist
DX: K57.33 Diverticulitis of large intestine without perforation or abscess with bleeding (principal); F41.9 Anxiety disorder, unspecified; I80.9 Phlebitis and thrombophlebitis of unspecified site; E87.6 Hypokalemia; K52.9 Noninfective gastroenteritis and colitis, unspecified; K21.9 Gastro-esophageal reflux disease without esophagitis; D64.9 Anemia, unspecified; R51 Headache; F17.210 Nicotine dependence, cigarettes, uncomplicated; Z86.010 Personal history of colon polyps; Z79.899 Other long term (current) drug therapy; Z88.2 Allergy status to sulfonamides
CPT/HCPCS: 36415; 71045; 74177; 80048; 80053; 81001; 82270; 83735; 84443; 85025; 85027; 86850; 86900; 86901; 93005; 93010; 96360; 99285; J0360; J2543; J2550; J3490; J7030; J7050; J7121